=== PATIENT | male | born 1940 | race Caucasian/White ===

== ENCOUNTER 2018-09-10 17:15 | Emergency (ER) | payer OTHER ==
[~2018-09-10] VITALS: Ht 175.3 cm; Wt 86.2 kg
[~2018-09-10 17:15] MED LIST: Apresoline 25MG TAB PO; Apresoline 50MG TAB PO; Asa-EC 81MG TAB PO; Cozaar PO; GLUCOTROL PO; Glucophage PO; Isordil 10MG TAB PO; LEVAQUIN750 MG PO
[2018-09-10] MEDS ORDERED: LEXAPRO5 MG (17:57)
[2018-09-10] MEDS ORDERED: PRAVASTATIN SOD20 MG (17:57)
[2018-09-10] MEDS ORDERED: LOSARTAN POTASS50 MG (17:57)
[2018-09-10] MEDS ORDERED: GLUCOTROL10 MG (17:58)
[2018-09-10] MEDS ORDERED: FORTAMET1000 MG (17:58)
== END 2018-09-10 21:28 | disposition home or self-care (01) ==
LOC: ER 17:15
DX: G51.0 Bell's palsy (principal)

== ENCOUNTER 2019-06-01 13:05 | Emergency (ER) | payer OTHER ==
[~2019-06-01] VITALS: Ht 162.6 cm; Wt 74.8 kg
[~2019-06-01 13:05] MED LIST changes: +FORTAMET1000 MG; +GLUCOTROL10 MG; +LEXAPRO5 MG; +LOSARTAN POTASS50 MG; +PRAVASTATIN SOD20 MG
[2019-06-01] MEDS ORDERED: ELIQUIS5 MG (13:48)
== END 2019-06-01 19:46 | disposition home or self-care (01) ==
LOC: ER 13:05
DX: F41.8 Other specified anxiety disorders (principal); R06.02 Shortness of breath